=== PATIENT | male | born 1980 | race Hispanic/Latino ===

== ENCOUNTER 2019-04-27 09:52 | Emergency (ER) | payer SELFPAY ==
[2019-04-27] MEDS ORDERED: KETOROLAC TROMETHAMINE 60 MG/2 ML VIAL ONE (11:05)
[2019-04-27 11:27] LABS: APPEARANCE,URINE Clear (CLEAR); BILIRUBIN,URINE Negative (NEGATIVE); COLOR,URINE Yellow (YELLOW); GLUCOSE, URINE (UA) Negative (NEGATIVE); KETONES,URINE Negative (NEGATIVE); LEUKOCYTE ESTERASE ,URINE Small (NEGATIVE); NITRATE,URINE Negative (NEGATIVE); OCCULT BLOOD,URINE Negative (NEGATIVE); PROTEIN,URINE Negative (NEGATIVE)
[2019-04-27 11:45] LABS: BACTERIA,URINE None Seen /HPF (None Seen); RBC,URINE 0-1 /HPF (0-1); TRICHOMONAS,URINE Few /LPF (None Seen)
[2019-04-27 11:46] LABS: SQUAMOUS EPITHELIAL CELL,UR 0-2 /HPF (0-2)
[2019-04-27] MEDS ORDERED: LIDOCAINE HCL-MPF 1% 2ML VIAL ONE (12:20)
[2019-04-27] MEDS ORDERED: CEFTRIAXONE SODIUM 500 MG VIAL ONE (12:20)
[2019-04-27] MEDS ORDERED: LEVOFLOXACIN 500 MG TABLET ONE (12:21)
[2019-04-27] MEDS ORDERED: AZITHROMYCIN 250 MG TABLET PO ONE (12:22)
== END 2019-04-27 12:55 | disposition home or self-care (01) ==
LOC: EDH 09:52
DX: N39.0 Urinary tract infection, site not specified (principal); R03.0 Elevated blood-pressure reading, without diagnosis of hypertension; Z72.0 Tobacco use
CPT/HCPCS: 76870; 81001; 87088; 87486; 87797; 96372 ×2; 99285; J0696; J1885; J3490